=== PATIENT | female | born 1990 | race American Indian/Alaskan Native ===

== ENCOUNTER 2020-02-27 13:09 | Outpatient (CLI) | payer MEDICAID ==
[2020-02-27 15:06] LABS: Hematocrit 34.5 % (30.3-42.9); Hemoglobin 11.1 gm/dl (10.1-14.3); Mean Corpuscular HGB Conc 32 % (30-34); Mean Corpuscular Volume 75 fl (79-97); Platelet Count 291 K/mm3 (140-440); Red Blood Count 4.63 M/mm3 (3.65-5.03); Red Cell Distribution Width 16.7 % (13.2-15.2)
[2020-02-27 15:52] LABS: Alanine Aminotransferase 8 units/L (7-56); Uric Acid 4.9 mg/dL (3.5-7.6)
[2020-02-27 16:08] VITALS: BP 116/62
== END 2020-02-27 16:45 | disposition home or self-care (01) ==
LOC: TRG 13:09 → APU 13:10 → TRG 16:45
PROVIDERS: ATTEND Obstetrics & Gynecology
DX: Z34.83 Encounter for supervision of other normal pregnancy, third trimester (principal); Z3A.37 37 weeks gestation of pregnancy
CPT/HCPCS: 36415; 59025; 82565; 83615; 84450; 84460; 84550; 85027

== ENCOUNTER 2020-03-07 09:07 | Inpatient (IN) | payer MEDICAID ==
[2020-03-07] MEDS ORDERED: MINERAL OIL 30 ML ORAL LIQD PO PRN (11:13)
[2020-03-07] MEDS ORDERED: ePHEDrine SULFATE 50 MG/1 ML INJ IV PRN (11:13)
[2020-03-07] MEDS ORDERED: TERBUTALINE 1 MG/1 ML INJ SUB-Q PRN (11:13)
[2020-03-07 11:43] LABS: Hematocrit 33.4 % (30.3-42.9); Hemoglobin 10.9 gm/dl (10.1-14.3); Mean Corpuscular HGB Conc 33 % (30-34); Mean Corpuscular Volume 74 fl (79-97); Platelet Count 297 K/mm3 (140-440); Red Blood Count 4.53 M/mm3 (3.65-5.03); Red Cell Distribution Width 17.1 % (13.2-15.2)
[2020-03-07] MEDS ORDERED: OXYTOCIN DRIP 30 UNITS/500 ML BAG IV SCH (12:00)
[2020-03-07] MEDS: LACTATED RINGERS 1,000 ML IV SCH ×2 (12:07→20:15)
[2020-03-07] MEDS: miSOPROStol 25 MCG TAB VG SCH ×4 (12:10→23:58)
[2020-03-07] MEDS ORDERED: LIDOCAINE (2%) 20 MG/1 ML VIAL 20 ML MDV INFILTRATI ONE (12:13)
[2020-03-07] MEDS ORDERED: AMPICILLIN/NS 2 GM/100 ML 2 GM/100 ML BAG IV ONE (12:13)
--- NOTE | 2020-03-07 13:31 | History and Physical Report ---
History of Present Illness Date of examination: 03/07/20 Date of admission: 03/07/20 09:07 Chief complaint: IOL for morbid obesity History of present illness: 29 y/o presents at 39w0d for IOL secondary to morbid obesity. Patient denies contractions, vaginal bleeding, and loss of fluid. Pt endorses active movement. She has received care through [facility]. Her course has been complicated by obesity, silent carrier alpha t halassemia, and Trichomonas with negative test of cure. She is GBS negative. Past History Past Medical History: other (obesity) Past Surgical History: no surgical history BENDING ROLL HAND History: trichomonas (in , treated and cleared per JOE) Family/Genetic History: cancer (breast), other (silent carrier alpha thalassemia) - Obstetrical History Expected Date of Delivery: 03/14/20 Actual Gestation: 39 Week(s) 0 Day(s) : 1 Para: 0 Hx # Term Pregnancies: 0 Number of Pregnancies: 0 Spontaneous Abortions: 0 Induced : 0 Number of Living Children: 0 Medications and Allergies Allergies Allergy/AdvReac Type Severity Reaction Status Date / Time No Known Allergies Allergy Unverified 02/27/20 14:45 Active Meds: Active Medications Ephedrine Sulfate (Ephedrine Sulfate 50 Mg/1 Ml Inj) 10 mg IV Q2M PRN PRN Reason: Hypotension Lactated Ringer's (Lactated Ringers) 1,000 mls @ 125 mls/hr IV DIRECT LEENA Last Admin: 03/07/20 12:07 Dose: 125 mls/hr Documented by: Oxytocin/Sodium Chloride (Pitocin/Ns 30 Unit/500ml) 30 units in 500 mls @ 40 mls/hr IV TITR LEENA; Protocol Mineral Oil (Mineral Oil 30 Ml Oral Liqd) 30 ml PO QHS PRN PRN Reason: Constipation Misoprostol (Misoprostol 25 Mcg Tab) 25 mcg VG Q4H LEENA Last Admin: 03/07/20 12:10 Dose: 25 mcg Documented by: Terbutaline Sulfate (Terbutaline 1 Mg/1 Ml Inj) 0.25 mg SUB-Q ONCE PRN PRN Reason: Hyperstimulation/Hypertonicity Review of Systems Eyes: no blurred vision, no diplopia Cardiovascular: no shortness of breath Gastrointestinal: no abdominal pain Genitourinary: no vaginal bleeding, no leakage of fluid, no pelvic pain, no genital sores, no contractions Neurological: no headaches - Vital Signs Vital signs: Vital Signs Pulse BP 100 H 134/68 03/07/20 10:16 03/07/20 10:16 Temp Pulse Resp BP Pulse Ox 98.2 F 99 H 18 134/68 03/07/20 10:31 03/07/20 10:31 03/07/20 10:31 03/07/20 10:31 - Physical Exam Lungs: Positive: Normal air movement Abdomen: Positive: normal appearance, soft. Negative: distention, tenderness Genitourinary (Female): Positive: normal external genitalia, normal perenium Vagina: Positive: normal moisture Uterus: Positive: enlarged Extremities: Positive: normal - Obstetrical FHR: category 1 FHR comments: FHR 145 Uterine Contraction Monitor Mode: External Cervical Dilatation: 0 (SVE per Mimi RN at 1100) Cervical Effacement Percentage: 0 station: high Uterine Contraction Pattern: Absent (pt not feeling ctx) Results Result Diagrams: 03/07/20 11:20 Abnormal lab results 03/07/20 Range/Units 11:20 MCV 74 L (79-97) fl MCH 24 L (28-32) pg RDW 17.1 H (13.2-15.2) % All other labs normal. Assessment and Plan : 29 y/o IUP at 39w0d IOL for MO Fetus palpates cephalic GBS neg, intact membranes VSS SVE closed/thick/high per RN, pt denies ctx Antepartum trichomonas with negative test of cure P: Admit to L&D IOL starting with misoprostol PV q4h Monitor maternal/fetus status closely Anticipate
[2020-03-07] MEDS ORDERED: PROMETHAZINE 25 MG TAB PO PRN (18:07)
[2020-03-07] MEDS: BUTORPHANOL 2 MG/1 ML INJ IV PRN ×2 (18:36→21:26)
--- NOTE | 2020-03-07 19:36 | Event Note ---
Date: 03/07/20 Mild range BP noted. Pt denies headache or scotomata. PIH labs ordered. New diagnosis of gestational hypertension. Continue Cytotec induction.
[2020-03-07 20:46] LABS: Alanine Aminotransferase 8 units/L (7-56); Albumin 3.3 g/dL (3.9-5); BUN/Creatinine Ratio 12; Blood Urea Nitrogen 7 mg/dL (7-17); Calcium 9.1 mg/dL (8.4-10.2); Hemolysis Index 21; Uric Acid 4.6 mg/dL (3.5-7.6)
[2020-03-08] MEDS: BUTORPHANOL 2 MG/1 ML INJ IV PRN ×2 (00:56→07:47)
[2020-03-08] MEDS: miSOPROStol 25 MCG TAB VG SCH (04:09)
[2020-03-08] MEDS: LACTATED RINGERS 1,000 ML IV SCH ×3 (04:11→13:00)
[2020-03-08] MEDS ORDERED: AMPICILLIN/NS 2 GM/100 ML 2 GM/100 ML BAG IV ONE (07:00)
[2020-03-08] MEDS ORDERED: ONDANSETRON 4 MG/2 ML INJ ONE (07:36)
--- NOTE | 2020-03-08 07:36 | Progress Note ---
Assessment and Plan - Patient Problems (1) Morbid obesity Current Visit: Yes Status: Acute Plan to address problem: Initiate Pitocin augmentation Subjective - Subjective Date of service: 03/08/20 Interval history: 29-year-old G1, P0 at 39+1 weeks who is being induced for morbid obesity. The patient is status post induction with Cytotec. She reports spontaneous rupture membranes this a.m. The patient will be transition to Pitocin. Patient reports: loss of fluid Objective - Vital Signs Vital Signs: Vital Signs - 12hr 03/07/20 03/07/20 03/07/20 21:26 22:26 22:43 Temperature Pulse Rate 94 H Respiratory 18 18 Rate Blood Pressure O2 Sat by Pulse 99 Oximetry 03/07/20 03/07/20 03/07/20 22:48 22:53 22:58 Temperature Pulse Rate 88 88 87 Respiratory Rate Blood Pressure O2 Sat by Pulse 98 98 98 Oximetry 03/07/20 03/07/20 03/07/20 23:03 23:08 23:13 Temperature Pulse Rate 92 H 87 88 Respiratory Rate Blood Pressure O2 Sat by Pulse 98 98 98 Oximetry 03/07/20 03/07/20 03/07/20 23:18 23:23 23:28 Temperature Pulse Rate 88 87 86 Respiratory Rate Blood Pressure O2 Sat by Pulse 96 97 98 Oximetry 03/07/20 03/07/20 03/07/20 23:33 23:38 23:43 Temperature Pulse Rate 90 90 98 H Respiratory Rate Blood Pressure O2 Sat by Pulse 97 97 96 Oximetry 03/07/20 03/07/20 03/07/20 23:44 23:48 23:53 Temperature Pulse Rate 89 96 H 88 Respiratory Rate Blood Pressure 140/73 O2 Sat by Pulse 88 96 96 Oximetry 03/07/20 03/08/20 03/08/20 23:58 00:03 00:08 Temperature Pulse Rate 87 88 96 H Respiratory Rate Blood Pressure O2 Sat by Pulse 96 96 98 Oximetry 03/08/20 03/08/20 03/08/20 00:13 00:18 00:23 Temperature Pulse Rate 91 H 100 H 89 Respiratory Rate Blood Pressure O2 Sat by Pulse 98 98 98 Oximetry 03/08/20 03/08/20 03/08/20 00:28 00:33 00:34 Temperature Pulse Rate 88 90 89 Respiratory Rate Blood Pressure O2 Sat by Pulse 97 96 94 Oximetry 03/08/20 03/08/20 03/08/20 00:38 00:43 00:44 Temperature Pulse Rate 103 H 89 85 Respiratory Rate Blood Pressure 142/71 O2 Sat by Pulse 98 98 89 Oximetry 03/08/20 03/08/20 03/08/20 00:48 00:53 00:56 Temperature Pulse Rate 89 92 H Respiratory 18 Rate Blood Pressure O2 Sat by Pulse 99 98 Oximetry 03/08/20 03/08/20 03/08/20 00:58 01:01 01:03 Temperature Pulse Rate 93 H 92 H 93 H Respiratory Rate Blood Pressure O2 Sat by Pulse 98 94 95 Oximetry 03/08/20 03/08/20 03/08/20 01:08 01:13 01:18 Temperature Pulse Rate 89 95 H 90 Respiratory Rate Blood Pressure O2 Sat by Pulse 96 95 95 Oximetry 03/08/20 03/08/20 03/08/20 01:23 01:28 01:32 Temperature Pulse Rate 89 90 85 Respiratory Rate Blood Pressure O2 Sat by Pulse 96 96 94 Oximetry 03/08/20 03/08/20 03/08/20 01:33 01:38 01:43 Temperature Pulse Rate 89 85 86 Respiratory Rate Blood Pressure O2 Sat by Pulse 96 97 96 Oximetry 03/08/20 03/08/20 03/08/20 01:44 01:45 01:48 Temperature Pulse Rate 81 86 Respiratory 18 Rate Blood Pressure 136/78 O2 Sat by Pulse 89 96 Oximetry 03/08/20 03/08/20 03/08/20 01:53 01:58 02:03 Temperature Pulse Rate 84 85 87 Respiratory Rate Blood Pressure O2 Sat by Pulse 96 96 96 Oximetry 03/08/20 03/08/20 03/08/20 02:08 02:13 02:18 Temperature Pulse Rate 83 85 88 Respiratory Rate Blood Pressure O2 Sat by Pulse 96 96 96 Oximetry 03/08/20 03/08/20 03/08/20 02:23 02:25 02:28 Temperature Pulse Rate 86 84 87 Respiratory Rate Blood Pressure O2 Sat by Pulse 96 92 96 Oximetry 03/08/20 03/08/20 03/08/20 02:31 02:33 02:36 Temperature Pulse Rate 85 88 90 Respiratory Rate Blood Pressure O2 Sat by Pulse 94 96 93 Oximetry 03/08/20 03/08/20 03/08/20 02:38 02:43 02:45 Temperature Pulse Rate 89 87 81 Respiratory Rate Blood Pressure 145/73 O2 Sat by Pulse 96 96 89 Oximetry 03/08/20 03/08/20 03/08/20 02:48 02:53 02:58 Temperature Pulse Rate 84 86 88 Respiratory Rate Blood Pressure O2 Sat by Pulse 95 96 99 Oximetry 03/08/20 03/08/20 03/08/20 03:02 03:03 03:08 Temperature Pulse Rate 98 H 117 H 174 H Respiratory Rate Blood Pressure O2 Sat by Pulse 93 85 84 Oximetry 03/08/20 03/08/20 03/08/20 03:13 03:21 03:26 Temperature Pulse Rate 154 H 90 90 Respiratory Rate Blood Pressure O2 Sat by Pulse 85 99 99 Oximetry 03/08/20 03/08/20 03/08/20 03:31 03:36 03:41 Temperature Pulse Rate 86 82 85 Respiratory Rate Blood Pressure O2 Sat by Pulse 97 98 98 Oximetry 03/08/20 03/08/20 03/08/20 03:45 03:46 03:51 Temperature Pulse Rate 84 84 86 Respiratory Rate Blood Pressure 148/75 O2 Sat by Pulse 98 98 Oximetry 03/08/20 03/08/20 03/08/20 03:56 04:00 04:06 Temperature 98.3 F Pulse Rate 87 93 H Respiratory 18 Rate Blood Pressure O2 Sat by Pulse 97 99 Oximetry 03/08/20 03/08/20 03/08/20 04:11 04:16 04:21 Temperature Pulse Rate 87 86 88 Respiratory Rate Blood Pressure O2 Sat by Pulse 98 99 98 Oximetry 03/08/20 03/08/20 03/08/20 04:26 04:31 04:36 Temperature Pulse Rate 94 H 95 H 79 Respiratory Rate Blood Pressure O2 Sat by Pulse 98 99 99 Oximetry 03/08/20 03/08/20 03/08/20 04:41 04:45 04:46 Temperature Pulse Rate 87 83 86 Respiratory Rate Blood Pressure 160/81 O2 Sat by Pulse 98 99 Oximetry 03/08/20 03/08/20 03/08/20 04:51 04:56 05:01 Temperature Pulse Rate 88 85 84 Respiratory Rate Blood Pressure O2 Sat by Pulse 98 97 97 Oximetry 03/08/20 03/08/20 03/08/20 05:06 05:11 05:16 Temperature Pulse Rate 83 88 89 Respiratory Rate Blood Pressure O2 Sat by Pulse 97 97 97 Oximetry 03/08/20 03/08/20 03/08/20 05:21 05:26 05:31 Temperature Pulse Rate 90 91 H 86 Respiratory Rate Blood Pressure O2 Sat by Pulse 98 97 97 Oximetry 03/08/20 06:44 Temperature Pulse Rate 91 H Respiratory Rate Blood Pressure 143/79 O2 Sat by Pulse Oximetry - Labs Labs: Abnormal Labs 03/07/20 03/07/20 11:20 19:37 MCV 74 L MCH 24 L RDW 17.1 H Chloride 107.3 H Alkaline Phosphatase 158 H Albumin 3.3 L Laboratory Results - last 24 hr 03/07/20 03/07/20 03/07/20 11:20 11:20 11:20 WBC 10.8 RBC 4.53 Hgb 10.9 Hct 33.4 MCV 74 L MCH 24 L MCHC 33 RDW 17.1 H Plt Count 297 Sodium Potassium Chloride Carbon Dioxide Anion Gap BUN Creatinine Estimated GFR BUN/Creatinine Ratio Glucose Uric Acid Calcium Total Bilirubin AST ALT Alkaline Phosphatase Total Protein Albumin Albumin/Globulin Ratio Syphilis IgG Antibody Nonreactive Blood Type A POSITIVE Antibody Screen Negative 03/07/20 19:37 WBC RBC Hgb Hct MCV MCH MCHC RDW Plt Count Sodium 140 Potassium 4.4 Chloride 107.3 H Carbon Dioxide 22 Anion Gap 15 BUN 7 Creatinine 0.6 Estimated GFR > 60 BUN/Creatinine Ratio 12 Glucose 98 Uric Acid 4.6 Calcium 9.1 Total Bilirubin 0.20 AST 12 ALT 8 Alkaline Phosphatase 158 H Total Protein 6.8 Albumin 3.3 L Albumin/Globulin Ratio 0.9 Syphilis IgG Antibody Blood Type Antibody Screen
[2020-03-08] MEDS: OXYTOCIN DRIP 30 UNITS/500 ML BAG IV SCH ×2 (08:07→23:45)
[2020-03-08] MEDS: AMPICILLIN/NS 1 GM/50 ML 1 GM/50 ML BAG IV SCH ×2 (10:44→18:51)
[2020-03-08] MEDS ORDERED: fentaNYL 100 MCG/2 ML INJ IV PRN (11:00)
[2020-03-08] MEDS ORDERED: ePHEDrine SULFATE 50 MG/1 ML INJ IV PRN (11:30)
[2020-03-08] MEDS ORDERED: NALOXONE 2 MG/2 ML INJ IV PRN (12:00)
[2020-03-08] MEDS: fentaNYL-BUPIV 2 MCG/ML-0.125% 200 MCG/100 ML BAG EPIDURAL SCH ×2 (12:56→20:09)
--- NOTE | 2020-03-08 13:16 | Anesthesia Consultation ---
Anesthesia Consult and Med Hx Date of service: 03/08/20 - Airway Anesthetic Teeth Evaluation: Poor ROM Head & Neck: Adequate Mental/Hyoid Distance: Adequate Mallampati Class: Class III Intubation Access Assessment: Possibly Difficult - Pulmonary Exam CTA: Yes - Cardiac Exam Cardiac Exam: RRR - Pre-Operative Health Status ASA Pre-Surgery Classification: ASA3 Proposed Anesthetic Plan: Epidural - Pulmonary Hx Smoking: No Hx Asthma: Yes (LAST ATTACK OVER A YEAR AGO) Hx Respiratory Symptoms: No SOB: No COPD: No Home Oxygen Therapy: No Hx Pneumonia: No Hx Sleep Apnea: No - Cardiovascular System Hx Hypertension: No Hx Coronary Artery Disease: No Hx Heart Attack/AMI: No Hx Angina: No Hx Percutaneous Transluminal Coronary Angioplasty (PTCA): No Hx Cardia Arrhythmia: No Hx Pacemaker: No Hx Internal Defibrillator: No Hx Valvular Heart Disease: No Hx Heart Murmur: No Hx Peripheral Vascular Disease: No - Central Nervous System Hx Neuromuscular Disorder: No Hx Seizures: No CVA: No Hx Back Pain: No Hx Psychiatric Problems: No - Gastrointestinal Hx Ulcer: No Hx Gastroesophageal Reflux Disease: Yes - Endocrine Hx Renal Disease: No Hx End Stage Renal Disease: No Hx Cirrhosis: No Hx Liver Disease: No Hx Insulin Dependent Diabetes: No Hx Non-Insulin Dependent Diabetes: No Hx Thyroid Disease: No Hx Hypothyroidism: No Hx Hyperthyroidism: No - Hematic Hx Anemia: No Hx Sickle Cell Disease: No - Other Systems Hx Alcohol Use: No Hx Substance Use: No Hx Cancer: No Hx Obesity: Yes
--- NOTE | 2020-03-08 13:20 | Progress Note ---
Labor Epidural - Labor Epidural Start Time: 12:12 Stop Time: 12:35 Performed by:: CARRIE ECHEVERRIA Procedure: Patient is requesting a laboring epidural for laboring pain. Patient IDed, H&P reviewed, all questions and concerns were answered, and consent was signed. Timeout was performed at bedside. Patient in sitting position. Sterile prep and drape was performed. 3ml of 1% lidocaine skin wheal at L[3]- L [4]. 18- gauge Tuohy epidural needle was advanced to loss of resistance with air technique 9cm. Negative CSF negative blood. Epidural catheter advanced to [12cm] centimeters. [negative] Aspiration [negative] test dose. Sterile dr essing applied. Patient tolerated procedure.
[2020-03-08] MEDS ORDERED: SODIUM CHLORIDE 0.9% 1000 ML 1,000 ML ONE ×2 (14:20→18:29)
[2020-03-08] MEDS ORDERED: ceFAZolin/Water 2 GM/20 ML 2 GM/20 ML SYRINGE IV ONE (14:24)
[2020-03-08] MEDS ORDERED: BICITRA ORAL LIQD 30ML ONE (14:27)
[2020-03-08] MEDS ORDERED: METOCLOPRAMIDE 10 MG/2 ML INJ ONE (14:28)
[2020-03-08] MEDS ORDERED: FAMOTIDINE 20 MG/2 ML INJ IV ONE ×2 (14:30→14:33)
[2020-03-08] MEDS ORDERED: METOCLOPRAMIDE 10 MG/2 ML INJ IV ONE (14:33)
[2020-03-08] MEDS ORDERED: BICITRA ORAL LIQD 30ML PO ONE (14:33)
[2020-03-08] MEDS ORDERED: ceFAZolin/Water 2 GM/20 ML 2 GM/20 ML SYRINGE IV NR (15:00)
[2020-03-08] MEDS ORDERED: AMPICILLIN/NS 1 GM/50 ML 1 GM/50 ML BAG IV SCH (15:00)
--- NOTE | 2020-03-08 23:55 | Procedure Note ---
OB Delivery Note - Delivery Date of Delivery: 03/08/20 Surgeon: CRYSTAL CHAUDHRY Estimated blood loss: other (400ml) - Vaginal Delivery presentation: vertex Delivery position: OA Intrapartum events: mult.variable deceleratio Delivery monitor: external FHT, external uterine, internal FHT, internal uterine Route of delivery: Delivery placenta: spontaneous Delivery cord: 3 umbilical vessels Episiotomy: none Delivery laceration: 1st degree Anesthesia: epidural Delivery comments: The patient progressed to complete complete plus one. We began second stage of labor however the patient's labor was complicated by bradycardia and multiple variable decelerations. Once the fetus descended to +2 station a vacuum was applied. Experienced 3 pop offs with inability to deliver the fetus with the Kiwi vacuum. There was significant improvement in the tracing to baseline of 130s to 140s after application of the vacuum. The patient subsequently delivered vaginally. She delivered a liveborn female infant with Apgars of 8 and 9 weight 7 pounds 1 ounce. After delivery of the head the shoulders delivered without difficulty. The cord was clamped and cut x2 and the was taken to the warmer for further evaluation. The placenta delivered spontaneously intact with a three-vessel cord. The patient sustained a midline first-degree laceration that was left on repair. Estimated blood loss 400 mL. - A at 1 minute: 8 at 5 minutes: 9 Gender: Female (Weight 7 pounds 1 ounce)
[2020-03-09] MEDS ORDERED: ACETAMINOPHEN 325 MG TAB PO PRN (00:05)
[2020-03-09] MEDS ORDERED: PROMETHAZINE 25 MG TAB PO PRN (00:05)
[2020-03-09] MEDS ORDERED: PROMETHAZINE 25 MG RECT SUPP PR PRN (00:05)
[2020-03-09] MEDS ORDERED: ONDANSETRON 4 MG/2 ML INJ IV PRN (00:05)
[2020-03-09] MEDS ORDERED: diphenhydrAMINE 25 MG CAP PO PRN (00:05)
[2020-03-09] MEDS ORDERED: LANOLIN/ZINC/DIMETHICONE (LANSINOH) 7 GM TP PRN (00:05)
[2020-03-09] MEDS ORDERED: MAGNESIUM HYDROXIDE (MOM) ORAL LIQD UDC PO PRN (00:05)
[2020-03-09] MEDS: HYDROcodone/ACETAMINOPHEN 5-325 MG TAB PO PRN ×2 (04:29→16:55)
[2020-03-09] MEDS: WITCH HAZEL/ GLYCERIN PAD TP PRN (04:29)
[2020-03-09] MEDS: IBUPROFEN 600 MG TAB PO SCH ×4 (05:41→23:04)
--- NOTE | 2020-03-09 09:40 | Post Anesthesia Evaluation ---
- Post Anesthesia Evaluation Patient Participated: Yes Airway Patent: Yes Stable Respiratory Function: Yes Nausea/Vomiting: No Temp > 96.8F: Yes Pain Manageable: Yes Adequeate Hydration: Yes Anesthesia Complications: No Block Receding Appropriately: Yes Patient on Ventilator: No
--- NOTE | 2020-03-09 13:39 | Progress Note ---
Assessment and Plan - Patient Problems (1) Morbid obesity Current Visit: Yes Status: Acute Plan to address problem: Patient doing well Discharge home tomorrow Subjective - Subjective Date of service: 03/09/20 Interval history: The patient is without any significant complaints. She states that she believes the infant's head is sensitive to palpation. She is having some difficulty with breast-feeding Patient reports: appetite normal, voiding normally, pain well controlled [place]: doing well Objective - Vital Signs Latest vital signs: Vital Signs Temp Pulse Resp BP BP Pulse Ox 03/09/20 07:21 97.9 F 87 20 112/60 97 03/09/20 03:20 98.0 F 80 20 143/78 96 03/09/20 01:42 98 H 138/65 03/09/20 01:27 101 H 148/63 03/09/20 01:12 107 H 128/58 03/09/20 00:57 100 H 128/61 03/09/20 00:42 107 H 117/78 03/09/20 00:27 116 H 104/58 03/09/20 00:12 114 H 129/60 03/09/20 00:05 118 H 134/82 03/08/20 23:57 107 H 97 03/08/20 23:52 113 H 99 03/08/20 23:47 107 H 100 03/08/20 23:42 154 H 100 03/08/20 23:37 131 H 100 03/08/20 23:32 150 H 100 03/08/20 23:27 109 H 100 03/08/20 23:22 116 H 100 03/08/20 23:17 105 H 100 03/08/20 23:13 94 H 82 L 03/08/20 23:12 101 H 100 03/08/20 23:07 108 H 100 03/08/20 23:02 98 H 100 03/08/20 22:57 104 H 100 03/08/20 22:52 99 H 100 03/08/20 22:47 107 H 100 03/08/20 22:42 100 H 100 03/08/20 22:37 108 H 100 03/08/20 22:32 103 H 100 03/08/20 22:27 104 H 100 03/08/20 22:22 107 H 100 03/08/20 22:17 113 H 100 12/11/20 22:12 127 H 100 03/08/20 22:07 120 H 100 03/08/20 22:02 100 H 100 03/08/20 21:57 94 H 100 03/08/20 21:52 101 H 100 03/08/20 21:47 104 H 100 03/08/20 21:42 102 H 100 03/08/20 21:37 103 H 100 03/08/20 21:32 97 H 100 03/08/20 21:27 113 H 99 03/08/20 21:22 103 H 100 03/08/20 21:17 102 H 100 03/08/20 21:12 103 H 100 03/08/20 21:07 110 H 100 03/08/20 21:02 104 H 100 03/08/20 20:57 110 H 100 03/08/20 20:52 109 H 100 03/08/20 20:47 110 H 100 03/08/20 20:42 111 H 100 03/08/20 20:37 115 H 100 03/08/20 20:32 106 H 100 03/08/20 20:27 107 H 100 03/08/20 20:22 112 H 100 03/08/20 20:17 113 H 100 03/08/20 20:12 111 H 100 03/08/20 20:07 111 H 100 03/08/20 20:02 111 H 100 03/08/20 19:57 105 H 100 03/08/20 19:52 102 H 100 03/08/20 19:47 102 H 100 03/08/20 19:42 103 H 99 03/08/20 19:37 99 H 100 03/08/20 19:32 107 H 100 03/08/20 19:27 113 H 100 03/08/20 19:25 105 H 137/68 03/08/20 19:24 98.6 F 104 H 18 137/68 100 03/08/20 19:22 104 H 100 03/08/20 19:17 103 H 99 03/08/20 19:12 101 H 100 03/08/20 19:07 104 H 100 03/08/20 19:02 101 H 100 03/08/20 18:59 106 H 129/64 03/08/20 18:57 111 H 100 03/08/20 18:52 106 H 100 03/08/20 18:47 104 H 100 03/08/20 18:42 104 H 133/62 100 03/08/20 18:37 105 H 100 03/08/20 18:32 109 H 100 03/08/20 18:27 103 H 132/70 100 03/08/20 18:22 105 H 100 03/08/20 18:17 102 H 100 03/08/20 18:12 102 H 142/75 100 03/08/20 18:07 104 H 100 03/08/20 18:02 100 H 100 03/08/20 17:57 95 H 135/75 100 03/08/20 17:52 100 H 100 03/08/20 17:47 95 H 100 03/08/20 17:42 106 H 137/75 100 03/08/20 17:37 94 H 100 03/08/20 17:32 98 H 100 03/08/20 17:28 95 H 134/79 03/08/20 17:27 95 H 100 03/08/20 17:22 93 H 100 03/08/20 17:17 97 H 100 03/08/20 17:12 94 H 143/75 100 03/08/20 17:07 94 H 100 03/08/20 17:02 98 H 100 03/08/20 16:57 96 H 137/72 100 03/08/20 16:52 88 99 03/08/20 16:47 94 H 100 03/08/20 16:44 105 H 133/69 03/08/20 16:42 97 H 100 03/08/20 16:37 91 H 100 03/08/20 16:32 92 H 100 03/08/20 16:27 94 H 134/63 100 03/08/20 16:22 91 H 100 03/08/20 16:17 94 H 100 03/08/20 16:12 93 H 135/61 100 03/08/20 16:07 97 H 100 03/08/20 16:02 96 H 100 03/08/20 15:59 99 H 140/67 03/08/20 15:57 95 H 100 03/08/20 15:52 86 100 03/08/20 15:47 94 H 100 03/08/20 15:44 90 142/76 03/08/20 15:42 91 H 100 03/08/20 15:37 90 100 03/08/20 15:32 93 H 100 03/08/20 15:28 102 H 124/77 03/08/20 15:27 100 H 100 03/08/20 15:22 92 H 100 03/08/20 15:17 100 H 100 03/08/20 15:12 96 H 134/67 100 03/08/20 15:07 91 H 100 03/08/20 15:02 98 H 100 03/08/20 14:57 96 H 137/63 100 03/08/20 14:52 86 100 03/08/20 14:47 109 H 100 03/08/20 14:42 107 H 100 03/08/20 14:41 121 H 122/66 03/08/20 14:37 103 H 100 03/08/20 14:32 107 H 100 03/08/20 14:27 133 H 100 03/08/20 14:22 134 H 100 03/08/20 14:17 88 100 03/08/20 14:12 82 122/73 100 03/08/20 14:07 81 100 03/08/20 14:02 77 100 03/08/20 13:58 80 126/87 03/08/20 13:57 80 100 03/08/20 13:52 76 100 03/08/20 13:47 72 100 03/08/20 13:43 80 149/78 03/08/20 13:42 76 100 Intake and Output 03/08/20 03/09/20 03/09/20 22:59 06:59 14:59 Intake Total 62.533 240 Output Total 650 1300 Balance -650 -1237.467 240 Intake: IV 62.533 PITOCin/NS 30 UNIT/500ML 62.533 30 units In 500 ml @ 40 mls/hr IV TITR LEENA Rx#: [id number] Oral 240 Output: Urine 650 1300 Indwelling Catheter 650 Void 1300 Other: Total, Intake Amount 240 Total, Output Amount 650 600 # Voids Void 1 1 Estimated Blood Loss 400
--- NOTE | 2020-03-09 13:41 | Discharge Summary ---
Providers - Providers Date of Admission: 03/07/20 09:07 Date of discharge: 03/10/20 Attending physician: SAM TURNER Primary care physician: SAM TURNER Hospitalization Reason for admission: induction of labor Delivery: , vacuum extraction Discharge diagnosis: IUP at term delivered Hospital course: The patient was admitted for induction of labor for morbid obesity. Her intrapartum course is complicated by nonreassuring tracing with evidence of variable decelerations and bradycardia. During the patient's second stage of labor a vacuum was applied and the patient subsequently had a vaginal delivery. course was uneventful. Condition at discharge: Good Disposition: DC-01 TO HOME OR SELFCARE - Discharge Diagnoses (1) Morbid obesity Status: Acute Plan - Discharge Medications Prescriptions: Ibuprofen [Motrin] 800 mg PO Q8HR PRN #30 tablet PRN Reason: Pain , Severe (7-10) HYDROcodone/APAP 5-325 [[place] 5/325] 1 each PO Q6HR PRN #15 tablet PRN Reason: Pain - Provider Discharge Summary Activity: no sex for 6 weeks, no heavy lifting 4 weeks, no strenuous exercise Diet: routine Instructions: routine Additional instructions: [] Smoking cessation referral if applicable(refer to patient education folder for contact #) [] Refer to [facility] Booklet Call your doctor immediately for: * Fever > 100.5 * Heavy vaginal bleeding ( >1 pad per hour) * Severe persistent headache * Shortness of breath * Reddened, hot, painful area to leg or breast * Schedule visit in 4 weeks - Follow up plan
[2020-03-09 14:18] LABS: Hematocrit 32.4 % (30.3-42.9); Hemoglobin 10.4 gm/dl (10.1-14.3)
[2020-03-10] MEDS: IBUPROFEN 600 MG TAB PO SCH ×2 (05:44→12:49)
[2020-03-10] MEDS: WITCH HAZEL/ GLYCERIN PAD TP PRN (12:51)
[2020-03-10 16:17] VITALS: BP 134/68
== END 2020-03-10 17:30 | disposition home or self-care (01) | DRG 775 ==
LOC: LD 09:07 → OB 03-09 03:15
PROVIDERS: ADMIT Obstetrics & Gynecology; ATTEND Obstetrics & Gynecology
PROC: 10D07Z6 Extraction of Products of Conception, Vacuum, Via Natural or Artificial Opening (ICD-10-PCS; principal; 2020-03-08)
PROC: 0HQ9XZZ Repair Perineum Skin, External Approach (ICD-10-PCS; 2020-03-08)
PROC: 3E033VJ Introduction of Other Hormone into Peripheral Vein, Percutaneous Approach (ICD-10-PCS; 2020-03-08)
PROC: 3E0R3BZ Introduction of Anesthetic Agent into Spinal Canal, Percutaneous Approach (ICD-10-PCS; 2020-03-08)
PROC: 00HU33Z Insertion of Infusion Device into Spinal Canal, Percutaneous Approach (ICD-10-PCS; 2020-03-08)
DX: O76 Abnormality in fetal heart rate and rhythm complicating labor and delivery (principal); Z37.0 Single live birth; Z3A.39 39 weeks gestation of pregnancy; Z20.828 Contact with and (suspected) exposure to other viral communicable diseases; O99.214 Obesity complicating childbirth; E66.01 Morbid (severe) obesity due to excess calories; O70.0 First degree perineal laceration during delivery
CPT/HCPCS: 36415; 80053; 84550; 85014; 85018; 85027; 86592; 86850; 86900; 86901; G0378; A6250; J0290; J0595; J2405; J2590; J2765; J3010; J7120; Q0169; U0003

== ENCOUNTER 2021-03-03 15:46 | Emergency (ER) | payer MEDICAID ==
[2021-03-03 15:57] VITALS: BP 149/104
[2021-03-03] MEDS ORDERED: dexAMETHasone 20 MG/5 ML VIAL IM ONE (17:59)
[2021-03-03] MEDS ORDERED: IPRATROPIUM 0.02% NEBU 2.5 ML IH ONE (17:59)
[2021-03-03] MEDS ORDERED: ALBUTEROL 2.5 MG/3 ML NEBU IH ONE (17:59)
--- NOTE | 2021-03-03 18:30 | Emergency Department Report ---
- General Chief Complaint: Upper Respiratory Infection Stated Complaint: Asthma Attack Time Seen by Provider: 03/03/21 17:58 Source: patient Mode of arrival: Ambulatory Limitations: No Limitations - History of Present Illness Initial Comments: The patient was evaluated in the emergency department for symptoms described in the history of present illness. He/she was evaluated in the context of the global COVID-19 pandemic, which necessitated consideration that the patient might be at risk for infection with the virus that causes COVID-19. Institutional protocols and algorithms that pertain to the evaluation of patients at risk for COVID-19 are in a state of rapid change based on information released by regulatory bodies including the CDC and federal and state organizations. These policies and algorithms were followed during the patient's care in the emergency department. Please note that these policies, procedures and recommendations changed on a rapid basis. 30-year-old morbid obese -[place] female presents to the emergency room states that she had a asthma attack the other day. She comes in complaining of shortness of breath worse with walking. She has been using [id number] Primatene Mist as she ran out of her albuterol. Patient has not vaccinated for Covid and has not recently been tested for Covid. She denies any fever or chills. She states she is allergic to ketoconazole. Does not have a primary care provider. MD Complaint: cough, rhinorrhea Onset/Timin -: days(s) Severity scale (0 -10): 2 Consistency: intermittent Improves With: nothing Worsens With: activity Associated Symptoms: cough, shortness of breath, hoarseness. denies: fever, chills, diaphoresis, headache, rhinorrhea, nausea, vomiting Treatments Prior to Arrival: other (OTC Primatene Mist) - Related Data Home Medications Medication Instructions Recorded Confirmed Last Taken Pnv,Calcium 72/Iron,Carb/Folic 72 mg PO DAILY 03/08/20 03/08/20 03/06/20 [ Plus Iron Tablet] Previous Rx's Medication Instructions Recorded Last Taken Type HYDROcodone/APAP 5-325 [[place] 1 each PO Q6HR PRN #15 tablet 03/09/20 Unknown Rx 5/325] Ibuprofen [Motrin] 800 mg PO Q8HR PRN #30 tablet 03/09/20 Unknown Rx Albuterol Sulfate [Proair 1 puff IH QID PRN #1 aer.pow.ba 03/03/21 Unknown Rx Respiclick] predniSONE [Deltasone] 50 mg PO QDAY 5 Days #5 tab 03/03/21 Unknown Rx Allergies Allergy/AdvReac Type Severity Reaction Status Date / Time ketoconazole [From Nizoral] AdvReac Rash Verified 03/08/20 07:46 ED Review of Systems ROS: Stated complaint: Asthma Attack Other details as noted in HPI Comment: All other systems reviewed and negative ED Past Medical Hx - Past Medical History Hx Hypertension: No Hx Heart Attack/AMI: No Hx Congestive Heart Failure: No Hx Diabetes: No Hx Deep Vein Thrombosis: No Hx Liver Disease: No Hx Renal Disease: No Hx Sickle Cell Disease: No Hx Seizures: No Hx Asthma: Yes (LAST ATTACK OVER A YEAR AGO) Hx COPD: No Hx HIV: No - Surgical History Hx Pacemaker: No Hx Internal Defibrillator: No - Social History Smoking Status: Never Smoker - Medications Home Medications: Home Medications Medication Instructions Recorded Confirmed Last Taken Type Pnv,Calcium 72/Iron,Carb/Folic 72 mg PO DAILY 03/08/20 03/08/20 03/06/20 History [ Plus Iron Tablet] HYDROcodone/APAP 5-325 [[place] 1 each PO Q6HR PRN #15 tablet 03/09/20 Unknown Rx 5/325] Ibuprofen [Motrin] 800 mg PO Q8HR PRN #30 tablet 03/09/20 Unknown Rx Albuterol Sulfate [Proair 1 puff IH QID PRN #1 aer.pow.ba 03/03/21 Unknown Rx Respiclick] predniSONE [Deltasone] 50 mg PO QDAY 5 Days #5 tab 03/03/21 Unknown Rx ED Physical Exam - General Limitations: No Limitations General appearance: alert, in no apparent distress, obese - Head Head exam: Present: atraumatic, normocephalic - Eye Eye exam: Present: normal appearance - ENT ENT exam: Present: mucous membranes moist - Neck Neck exam: Present: normal inspection, full ROM - Respiratory Respiratory exam: Present: prolonged expiratory - Cardiovascular Cardiovascular Exam: Present: regular rate - Extremities Exam Extremities exam: Present: normal inspection, full ROM - Back Exam Back exam: Present: normal inspection - Neurological Exam Neurological exam: Present: alert, oriented X3, normal gait - Psychiatric Psychiatric exam: Present: normal affect, normal mood - Skin Skin exam: Present: warm, dry, intact, normal color. Absent: rash ED Course Vital Signs 03/03/21 15:55 Temperature 98.1 F Pulse Rate 100 H Respiratory 16 Rate Blood Pressure 149/104 O2 Sat by Pulse 99 Oximetry - Reevaluation(s) Reevaluation #1: 03/03/21 19:22 Patient reports she feels much better after having treatment. ED Medical Decision Making - Radiology Data Radiology results: report reviewed Chest x-ray is negative for any acute findings - Medical Decision Making 30-year-old morbid obese -[place] female presents to the emergency room states that she had a asthma attack the other day. She comes in complaining of shortness of breath worse with walking. She has been using [id number] Primatene Mist as she ran out of her albuterol. Patient has not vaccinated for Covid and has not recently been tested for Covid. She denies any fever or chills. She states she is allergic to ketoconazole. Does not have a primary care provider. Serum hCG, chest x-ray dexamethasone DuoNeb. Chest x-rays shows no acute abnormalities. Patient be discharged home on steroids and albuterol inhaler. Critical care attestation.: If time is entered above; I have spent that time in minutes in the direct care of this critically ill patient, excluding procedure time. ED Disposition Clinical Impression: Asthma, Severely overweight Disposition: 01 HOME / SELF CARE / HOMELESS Is pt being admited?: No Does the pt Need Aspirin: No Condition: Stable Instructions: Asthma (ED), Asthma, Adult, [id number] Prescriptions: predniSONE [Deltasone] 50 mg PO QDAY 5 Days #5 tab Albuterol Sulfate [Proair Respiclick] 1 puff IH QID PRN #1 aer.pow.ba PRN Reason: Wheezing Referrals: JAZZMINE RAMOS MD [Staff Physician] - 3-5 Days PAPA HECK MD [Staff Physician] - 3-5 Days
--- NOTE | 2021-03-03 19:16 | XRay Report ---
CHEST 2 VIEWS INDICATION / CLINICAL INFORMATION: sob,cough. COMPARISON: None available. FINDINGS: SUPPORT DEVICES: None. HEART / MEDIASTINUM: No significant abnormality. LUNGS / PLEURA: No significant pulmonary or pleural abnormality. No pneumothorax. ADDITIONAL FINDINGS: No significant additional findings. IMPRESSION: 1. No acute findings. Signer Name: Jonnie Chu MD Signed: 03/03/2021 7:12 PM Workstation Name: [id number]
== END 2021-03-03 19:45 | disposition home or self-care (01) ==
LOC: ED 15:46
DX: J45.909 Unspecified asthma, uncomplicated (principal); Z79.899 Other long term (current) drug therapy
CPT/HCPCS: 36415; 71046; 82962; 84702; 94640; 96372; 99284; J1100